=== PATIENT | male | born 1990 | race Caucasian/White ===

== ENCOUNTER 2016-07-04 11:38 | Emergency (ER) | payer SELFPAY ==
[2016-07-04 13:26] VITALS: BP 120/66
--- NOTE | 2016-07-04 14:27 | UC ---
FLU HPI - HPI Summary HPI Summary: beginning day 3 of body aches, cough, chills, nasal congestion, weakness - History of Current Complaint Chief Complaint: UCRespiratory Stated Complaint: COUGH,SORE THROAT Time Seen by Provider: 07/04/16 14:17 Hx Obtained From: Patient Onset/Duration: Sudden Onset, Lasting Days - 3, Still Present Severity Currently: Mild Severity Initially: Moderate Pain Intensity: 6 Pain Scale Used: 0-10 Numeric Associated Signs & Symptoms: Positive: Fever, Myalgia, Cough, Nasal Congestion, Headache - Allergy/Home Medications Allergies/Adverse Reactions: Allergies Allergy/AdvReac Type Severity Reaction Status Date / Time No Known Allergies Allergy Verified 07/04/16 13:20 Home Medications: Home Medications [id number] [Day Time/Nite Time Cold/F] 1 tab PO BID PRN 03/10 [History Confirmed 07/04/16] PMH/Surg Hx/FS Hx/Imm Hx Previously Healthy: Yes - Surgical History Surgical History: Yes Surgery Procedure, Year, and Place: tonsilectomy. ACL bilateral - Family History Known Family History: Positive: None Family History: no family history of cardiovascular disorders reported in family - Social History Occupation: Employed Full-time - in a [employer] Lives: With Family Alcohol Use: None Substance Use Type: None Smoking Status (MU): Never Smoked Tobacco - Immunization History Most Recent Influenza Vaccination: 02/2016 Review of Systems Constitutional: Fever, Chills, Fatigue Skin: Negative Eyes: Negative ENT: Sore Throat, Ear Ache, Nasal Discharge Respiratory: Cough Cardiovascular: Negative Gastrointestinal: Negative Genitourinary: Negative Motor: Negative Neurovascular: Negative Musculoskeletal: Arthralgia, Myalgia Neurological: Negative Psychological: Negative All Other Systems Reviewed And Are Negative: Yes Physical Exam Triage Information Reviewed: Yes Appearance: Well-Nourished, Ill-Appearing - mild, Pain Distress - mild Vital Signs: Initial Vital Signs Temp 97.2 F 07/04/16 13:22 Pulse 72 07/04/16 13:22 Resp 22 07/04/16 13:22 BP 120/66 07/04/16 13:22 Pulse Ox 96 07/04/16 13:22 Vital Signs Reviewed: Yes Eye Exam: Normal Eyes: Positive: Conjunctiva Clear ENT Exam: Normal ENT: Positive: Normal ENT inspection, Hearing grossly normal, Pharynx normal, Nasal congestion, Nasal drainage, TMs normal. Negative: Tonsillar swelling, Tonsillar exudate, Trismus, Muffled/hoarse voice Neck exam: Normal Neck: Positive: Supple, Nontender, No Lymphadenopathy Respiratory Exam: Normal Respiratory: Positive: Chest non-tender, Lungs clear, Normal breath sounds, No respiratory distress, No accessory muscle use Cardiovascular Exam: Normal Cardiovascular: Positive: RRR, No Murmur, Pulses Normal, Brisk Capillary Refill Neurological Exam: Normal Neurological: Positive: Alert, Muscle Tone Normal, Fatigued Psychological Exam: Normal Psychological: Positive: Normal Response To Family, Age Appropriate Behavior Skin Exam: Normal Diagnostics - Laboratory Diagnostic Studies Completed/Ordered: rapid flu (+) Flu Course/Dx - Course Course Of Treatment: Tamiflu, increase fluids, tylenol, ibuprofen increase fluids follow with pcp re-check prn - Differential Dx/Diagnosis Differential Diagnosis/HQI/PQRI: Bronchitis, Influenza, Pneumonia, RSV Provider Diagnoses: Influenza A Discharge - Discharge Plan Condition: Stable Disposition: HOME Prescriptions: Oseltamivir CAP* [Tamiflu CAP*] 75 mg PO BID #10 cap Patient Education Materials: Ibuprofen (By mouth), Oseltamivir (By mouth), Influenza (ED) Forms: *Work Release Referrals: Los Murry MD [Primary Care Provider] -
[2016-07-04] MEDS ORDERED: Ibuprofen TAB* 600 MG PO ONE (14:28)
== END 2016-07-04 15:11 | disposition home or self-care (01) ==
LOC: UCCORT 11:38
DX: J09.X2 Influenza due to identified novel influenza A virus with other respiratory manifestations (principal)
CPT/HCPCS: 87502; 87651; 99212; A9270-GY; G0463